=== PATIENT | male | born 1975 | race Caucasian/White ===

== ENCOUNTER 2017-02-08 11:42 | Emergency (ER) | payer OTHER ==
[~2017-02-08] VITALS: Ht 175.3 cm; Wt 104.3 kg
[2017-02-08 12:11] VITALS: BP 140/77
--- NOTE | 2017-02-08 12:15 | PHYS DOC ---
Past Medical History Past Medical History: No Pertinent History Alcohol Use: Occasionally Drug Use: Marijuana Adult General Chief Complaint Chief Complaint: Palpitations HPI HPI 41-year-old male who states he developed a significant episode of shortness of breath and palpitations with some chest tightness approximately 45 minutes prior to arrival. Patient called EMS and arrives significantly improved and in no acute distress. He relates that he had approximately 5-6 pints of beer last night and woke up significantly hungover with a headache. He then drank a Red Bull and had a caffeine tablet his symptoms developed. He had to harness puller to the side of the road and walk into a building and asked for a glass of water. He states that his symptoms worsened and he called 911. He states he does have history of anxiety and has had multiple panic attacks in the past. He states he feels significantly better now. He denies any significant chest pain or shortness of breath. He denies any drug or alcohol use in the last several hours. He does smoke occasional tobacco cigarettes. Review of Systems Review of Systems Constitutional: Denies fever or chills [] Eyes: Denies change in visual acuity, redness, or eye pain [] HENT: Denies nasal congestion or sore throat [] Respiratory: Denies cough or shortness of breath [] Cardiovascular: No additional information not addressed in HPI [] GI: Denies abdominal pain, nausea, vomiting, bloody stools or diarrhea [] : Denies dysuria or hematuria [] Musculoskeletal: Denies back pain or joint pain [] Integument: Denies rash or skin lesions [] Neurologic: Denies headache, focal weakness or sensory changes [] Endocrine: Denies polyuria or polydipsia [] Physical Exam Physical Exam Constitutional: Well developed, well nourished, no acute distress, non-toxic appearance. [] HENT: Normocephalic, atraumatic, bilateral external ears normal, oropharynx moist, no oral exudates, nose normal. [] Eyes: PERRLA, EOMI, conjunctiva normal, no discharge. [] Neck: Normal range of motion, no tenderness, supple, no stridor. [] Cardiovascular:Heart rate regular rhythm, no murmur [] Lungs & Thorax: Bilateral breath sounds clear to auscultation [] Abdomen: Bowel sounds normal, soft, no tenderness, no masses, no pulsatile masses. [] Skin: Warm, dry, no erythema, no rash. [] Back: No tenderness, no CVA tenderness. [] Extremities: No tenderness, no cyanosis, no clubbing, ROM intact, no edema. [] Neurologic: Alert and oriented X 3, normal motor function, normal sensory function, no focal deficits noted. [] Psychologic: Affect normal, judgement normal, mood normal. [] Current Patient Data Vital Signs Vital Signs Date Time Temp Pulse Resp B/P (MAP) Pulse Ox O2 Delivery O2 Flow Rate FiO2 02/08/17 11:46 98.8 86 20 171/74 (106) 96 Room Air 98.8 EKG EKG EKG as interpreted by me shows a sinus rhythm with rate of 84 bpm. There is no acute injury pattern seen. There is no ectopy. Intervals are normal. Radiology/Procedures Radiology/Procedures [] Course & Med Decision Making Course & Med Decision Making Pertinent Labs and Imaging studies reviewed. (See chart for details) This 41-year-old male who feels symptomatically better after an episode of palpitations and shortness of breath has an EKG does not reveal any acute abnormalities. I discussed with the patient at length that he is to follow closely with his primary care doctor about his ongoing anxiety issues and to avoid any excess alcohol or caffeine use as these were precipitants for his symptoms today. I do not see an indication to perform any laboratory workup at this time as he is completely asymptomatic. He will be discharged to follow with his primary doctor in the next several days. Return precautions were provided and acknowledged by the patient. Dragon Disclaimer Dragon Disclaimer This electronic medical record was generated, in whole or in part, using a voice recognition dictation system. Departure Departure Impression: Primary Impression: Palpitations Disposition: 01 HOME, SELF-CARE Admitting Physician: Other Condition: IMPROVED Patient Instructions: Palpitations, Hvas-rt-Hmap Additional Instructions: Please follow up with your primary doctor in the next 2-3 days regarding your recent episode of palpitations. Avoid any excessive alcohol or caffeine use. Avoid any strenuous activities. Return to the ER if you develop any worsening of your symptoms. SAMANTHA BUTTS DO Feb 08, 2017 12:15
--- NOTE | 2017-02-08 12:38 | EKG ---
[facility] [address] [place] [address] Test Date: 2017-02-08 Test Time: 11:53:05 Pat Name: JUNE COBB Department: Room: Gender: M Rn Clinical: : 1975 Requested By: SAMANTHA BUTTS Order Number: [id number] Reading MD: Demetri Ross Measurements Intervals [place] Rate: 84 P: 25 CO: 132 QRS: 14 QRSD: 92 T: 31 QT: 338 QTc: 402 Interpretive Statements SINUS RHYTHM Electronically Signed On 02-11-2017 12:57:51 CDT by Demetri Ross
== END 2017-02-08 12:20 | disposition home or self-care (01) ==
LOC: ER 11:42
DX: R00.2 Palpitations (principal); R06.02 Shortness of breath; R07.89 Other chest pain; R51 Headache; F12.10 Cannabis abuse, uncomplicated
CPT/HCPCS: 93005; 99283-25